=== PATIENT | female | born 1960 ===

== ENCOUNTER 2017-12-10 07:37 | Day surgery (SDC) | payer MEDICARE ==
[2017-12-10] MEDS ORDERED: Lactated Ringer's 500 ML IV ONE (08:00)
[2017-12-10] MEDS ORDERED: Propofol 10 mg/ml Inj (20 ML) ONE (08:15)
[2017-12-10] MEDS ORDERED: Lidocaine PF 2% (5 ml) Inj (For Cardiac Arrhy) IV ONE (08:15)
[2017-12-10 08:50] VITALS: TEMP 98; O2SAT 100
[2017-12-10 09:12] VITALS: BP 100/63; PULSE 77; RESP 16
== END 2017-12-10 09:16 | disposition home or self-care (01) ==
LOC: H.ENDO 07:37
PROVIDERS: ATTEND Internal Medicine Gastroenterology
DX: Z12.11 Encounter for screening for malignant neoplasm of colon (principal); K64.8 Other hemorrhoids
CPT/HCPCS: 45378; J2704; J7120